=== PATIENT | male | born 1960 | race Two or more races ===

== ENCOUNTER → 2024-09-18 | Outpatient (CLI) | payer MEDICAID, SELFPAY ==
--- NOTE | 2024-09-18 11:30 | XR_ITS ---
Examination: Retroperitoneal ultrasound, complete Technique: Multiple high resolution grayscale images of the retroperitoneum obtained, including kidneys and bladder. Exam date and time:September 18, 2024 1112 hours INDICATIONS: Elevated PSA on laboratory examination 3 months ago, constant urination and rectal pain FINDINGS: Right kidney 10.9 cm cortex 2.1 cm Left kidney 12.0 cm cortex 1.9 cm Mild bilateral renal parenchymal scar formation No hydronephrosis No bladder mass or bladder calculi Bladder prevoid volume 222 cc postvoid volume 25 cc Prostate volume 8.63 cc no prostate nodules IMPRESSION: Mild bilateral renal parenchyma scar formation No hydronephrosis No prostate nodules
== END | disposition home or self-care (01) ==
PROVIDERS: PCP Nurse Practitioner Family; Referring Provider Nurse Practitioner Family; Visit Provider Nurse Practitioner Family
DX: N28.89 Other specified disorders of kidney and ureter (principal)
CPT/HCPCS: 76770